=== PATIENT | female | born 1990 | race Hispanic/Latino ===

== ENCOUNTER 2019-06-19 08:45 | Outpatient (CLI) | payer OTHER ==
--- NOTE | 2019-06-19 09:46 | ULT ---
RIGHT UPPER QUADRANT ULTRASOUND: Date: 06/19/2019 HISTORY: 28-year-old female with right upper quadrant pain. FINDINGS: The liver demonstrates increased echogenicity consistent with fatty infiltration. No focal mass or in trahepatic ductal dilatation is seen. There is a 1.5 cm shadowing calculus in the neck of the gallbladder which did not move with change in position of the patient. No gallbladder wall thickening or pericholecystic fluid is seen. The common duct measures 2 mm in diameter. The right kidney and pancreas are normal. No free fluid seen. IMPRESSION: 1. Fatty liver. 2. Cholelithiasis. POS: OFF
== END 2019-06-19 08:46 | disposition home or self-care (01) ==
LOC: BICULT 08:45
PROVIDERS: ATTEND Family Medicine
DX: R10.11 Right upper quadrant pain (principal); K80.20 Calculus of gallbladder without cholecystitis without obstruction; K76.0 Fatty (change of) liver, not elsewhere classified
CPT/HCPCS: 76705